=== PATIENT | male | born 1965 | race Caucasian/White ===

== ENCOUNTER 2018-07-22 06:14 | Emergency (ER) | payer OTHER ==
[2018-07-22] MEDS ORDERED: NS 1,000 ML IV ONE (06:25)
[2018-07-22 06:53] LABS: PLATELET COUNT 237 10^3/uL (150-400)
--- NOTE | 2018-07-22 07:22 | EDPHY ---
H & P Time Seen by Provider: 07/22/18 07:01 HPI/ROS: CHIEF COMPLAINT: Syncope, cough HISTORY OF PRESENT ILLNESS: The patient is a 53-year-old male treated for hypertension and high cholesterol who presents emergency department with ongoing cough for 3 weeks. Patient saw his primary care physician 10 days ago for evaluation of his cough. He was treated with amoxicillin. He finished his course of antibiotics on Tuesday. He has continued to have a cough. Last Tuesday he was laughing with friends when he suddenly began to have a coughing fit. He subsequently had a syncopal episode during his coughing fit. He fell to his left side. This lasted for less than a minute. He denies any injury from the fall. On Tuesday he travel to [place]. He had a similar episode while laughing. He is able to stand from his business meeting and catch himself before he fainted. Again last night the patient had a syncopal episode. He was sitting when he began to cough. He awoke on his bathroom floor. He believes he struck the right side of his head. He has no headache. He has had no nausea or vomiting. Patient denies any chest pain. No leg pain or swelling. No foreign travel. Patient is vaccinated. No sick contacts at home. Of note, the patient states that he had such as significant coughing episode last week that he developed bruising on the left side of his chest REVIEW OF SYSTEMS: 10 systems were reveiwed and are negative with the exception of the elements mentioned in the history of present illness. Past Medical/Surgical History: Includes treatment for hypertension and high cholesterol Past surgical history: Hernia repair Social history: Patient does not smoke Smoking Status: Current some day smoker Physical Exam: Vitals noted. GENERAL: Well-appearing, in no acute distress, alert. HEENT: Eyes normal to inspection, normal pharynx, no signs of dehydration. NECK: Normal, supple. RESPIRATORY: Clear to auscultation bilaterally, no rales, rhonchi or wheezing. CVS: Regular rate and rhythm, no rubs, murmurs, or gallops. Chest wall: Slight bruising on the left lateral side of his chest. No significant tenderness palpation. No crepitus. ABDOMEN: Soft, nontender, nondistended, no organomegaly. BACK: Normal to inspection, no CVA tenderness. SKIN: Normal color, no rash, warm, dry. No pallor. EXTREMITIES: No pedal edema, no calf tenderness, no Homans sign or cords, no joint swelling. NEURO/PSYCH: Higher functions: Alert and Oriented x3. Normal speech and cognition. Normal mood and affect. Cranial nerves: Normal as tested. Cerebellar: Normal as tested. Good finger to nose, good [id number], normal gait. Peripheral exam: Normal motor exam. Normal sensation. Normal reflexes. Constitutional: Initial Vital Signs Temperature (C) 36.3 C 07/22/18 06:18 Heart Rate 87 07/22/18 06:18 Respiratory Rate 16 07/22/18 06:18 Blood Pressure 160/104 H 07/22/18 06:18 O2 Sat (%) 96 07/22/18 06:18 O2 Delivery Mode Room Air Allergies/Adverse Reactions: No Known Allergies Allergy (Verified 07/22/18 06:22) Home Medications: Medication Instructions Recorded Lipitor 01/24/12 Flomax 07/22/18 Lisinopril 07/22/18 predniSONE 20 mg PO DAILY 4 Days tab 07/22/18 Medical Decision Making ED Course/Re-evaluation: In the emergency department I discussed possible etiologies with the patient. I answered all his questions. IV was placed. Laboratory studies were obtained. CBC and chemistry unremarkable. Troponin was negative. EKG shows normal sinus rhythm, normal rate, normal axis, normal intervals. There are no ST or T-wave abnormalities. EKG is normal as interpreted by me. Chest x-ray was ordered. Swab was ordered. Chest x-ray: No focal infiltrate. Bronchitis I discussed the results with the patient. I answered all his questions. I recommended admission for his multiple syncopal episodes. The patient refused. The patient had capacity to make this decision. I discussed the pros and cons of admission versus discharge. I discussed my concerns with the syncopal episodes and this could be secondary to a heart abnormality. The patient understood and still requested discharge. He will follow up with his dtp operator Dr. Youssef. The patient was given prednisone 60 mg orally. This will treat for his ongoing cough. He was given a prescription for prednisone upon discharge. Differential Diagnosis: My differential includes but is not limited to bronchitis, pneumonia, pneumothorax, rib fracture, dysrhythmia, ACS, pertussis, CVA, vasovagal episode - Data Points Laboratory Results: Laboratory Results 07/22/18 06:35 07/22/18 06:35 07/22/18 07/22/18 07/22/18 06:38 06:35 06:35 WBC 8.12 10^3/uL 10^3/uL (3.80-9.50) RBC 5.07 10^6/uL 10^6/uL (4.40-6.38) Hgb 14.2 g/dL g/dL (13.7-17.5) Hct 41.3 % % (40.0-51.0) MCV 81.5 fL fL (81.5-99.8) MCH 28.0 pg pg (27.9-34.1) MCHC 34.4 g/dL g/dL (32.4-36.7) RDW 16.3 % H % (11.5-15.2) Plt Count 237 10^3/uL 10^3/uL (150-400) MPV 9.8 fL fL (8.7-11.7) Neut % (Auto) 65.1 % % (39.3-74.2) Lymph % (Auto) 21.2 % % (15.0-45.0) Arthur % (Auto) 7.6 % % (4.5-13.0) Eos % (Auto) 5.2 % % (0.6-7.6) Baso % (Auto) 0.7 % % (0.3-1.7) Nucleat RBC Rel Count 0.0 % % (0.0-0.2) Absolute Neuts (auto) 5.28 10^3/uL 10^3/uL (1.70-6.50) Absolute Lymphs (auto) 1.72 10^3/uL 10^3/uL (1.00-3.00) Absolute Monos (auto) 0.62 10^3/uL 10^3/uL (0.30-0.80) Absolute Eos (auto) 0.42 10^3/uL H 10^3/uL (0.03-0.40) Absolute Basos (auto) 0.06 10^3/uL 10^3/uL (0.02-0.10) Absolute Nucleated RBC 0.00 10^3/uL 10^3/uL (0-0.01) Immature Gran % 0.2 % % (0.0-1.1) Immature Gran # 0.02 10^3/uL 10^3/uL (0.00-0.10) Sodium 139 mEq/L mEq/L (135-145) Potassium 4.6 mEq/L mEq/L (3.5-5.2) Chloride 106 mEq/L mEq/L (97-110) Carbon Dioxide 25 mEq/l mEq/l (22-31) Anion Gap 8 mEq/L mEq/L (6-14) BUN 14 mg/dL mg/dL (7-23) Creatinine 0.9 mg/dL mg/dL (0.7-1.3) Estimated GFR > 60 Glucose 95 mg/dL mg/dL (70-100) Calcium 9.4 mg/dL mg/dL (8.5-10.4) POC Troponin I 0.00 ng/mL ng/mL (0.00-0.08) Medications Given: Discontinued Medications Sodium Chloride (Ns) 1,000 mls @ 0 mls/hr IV EDNOW ONE; Wide Open PRN Reason: Protocol Stop: 07/22/18 06:26 Last Admin: 07/22/18 06:37 Dose: 1,000 mls Point of Care Test Results: Chemistry 07/22/18 06:38 POC Troponin I 0.00 ng/mL ng/mL (0.00-0.08) Departure - Departure Disposition: Home, Routine, Self-Care Clinical Impression: Bronchitis Syncopal episodes Qualifiers: Syncope type: unspecified Qualified Code(s): R55 - Syncope and collapse Condition: Good Instructions: Syncope (ED), Acute Bronchitis (ED) Additional Instructions: Return with increasing chest pain or shortness of breath. If you developed coughing symptoms you should sit down so that you do not hurt herself if you have a repeat fainting episode. Referrals: Hesham Sanchez MD [Medical Doctor] - 2-3 days without fail Sari Pisano MD [Primary Care Provider] - 5-7 days, call for appt. Prescriptions: predniSONE 20 mg PO DAILY 4 Days tab
[2018-07-22 09:08] VITALS: BP 137/74
--- NOTE | 2018-07-23 07:52 | CPEKG ---
Test Reason : OPEN Blood Pressure : / mmHG Vent. Rate : 074 BPM Atrial Rate : 074 BPM P-R Int : 175 ms QRS Dur : 092 ms QT Int : 377 ms P-R-T Axes : 054 024 004 degrees QTc Int : 419 ms Sinus rhythm Confirmed by Romel Leong ([id number]) on 07/23/2018 7:52:00 AM Referred By: Confirmed By:Romel Leong
== END 2018-07-22 09:08 | disposition home or self-care (01) ==
DX: J40 Bronchitis, not specified as acute or chronic (principal); R55 Syncope and collapse; E86.9 Volume depletion, unspecified; F17.200 Nicotine dependence, unspecified, uncomplicated
CPT/HCPCS: 84484-PO